=== PATIENT | female | born 1960 | race Caucasian/White ===

== ENCOUNTER 2020-03-06 20:09 | Emergency (ER) | payer SELFPAY ==
[2020-03-06 20:10] VITALS: BP 144/92; PULSE 61; RESP 16; TEMP 36.2; O2SAT 100; BMI 27.3
--- NOTE | 2020-03-06 20:31 | RAD_ITS ---
HISTORY: FALL. LEFT SHOULDER PAIN. Exam: Left Shoulder 3 views COMPARISON: None FINDINGS: # of images incl. paperwork: 2 XR Shoulder Min 2 Views: Acute humeral head comminuted fracture is present with intra-articular extension. There is avulsion of the radial tuberosity. ASCVD within the aortic arch. Pulmonary hypoexpansion. Minimal arthritis within the left acromioclavicular joint. RAD/Shoulder min 2 Views IMPRESSION: Comminuted left humeral head fracture with intra-articular extension. Avulsion of the left greater tuberosity. at 2122 Reported and signed by: Kerwin Kang MD [facility]ER[facility] MD Electronically Signed: Kerwin Kang MD at 21:21 EST Tel , Service support ,
--- NOTE | 2020-03-06 20:32 | ED.DCSUM_ITS ---
History of Present Illness Chief Complaint: Upper Extremity Injury Informant: Patient Onset: Today Current Severity: Severe Maximum Severity: Severe Narrative: Patient presents secondary to left shoulder injury. She is here visiting family from [place]. She states she was going up some steps and tripped striking her left shoulder against the door frame. She states she is unable to move her left arm. She does have some paresthesias in the left arm. She is right-hand dominant. She denies head or neck injury. - Past Medical History (1) Hypertension Status: Chronic Past Medical History - Allergies and Home Meds Allergies/Adverse Reactions: Allergies Penicillins [PCN] Adverse Reaction (Verified 03/06/20 20:12) Hives Primary Care Physician: [facility] Doctor,Out of [NON-STAFF] - Prior records reviewed: Yes Review of Systems General: Denies: Chills, Fever Eyes: Denies: Visual changes - bilaterally ENT: Denies: Bilateral ear pain Cardiovascular: Denies: Chest pain Respiratory: Denies: Dyspnea Gastrointestinal: Denies: Abdominal pain Musculoskeletal: Reports: Extremity Pain Neurological: Reports: Weakness, Parasthesia Hematologic: Denies: Easy bruising, Easy bleeding Allergy: Denies: Uticaria Physical Exam Vital Signs/Narrative: Vital Signs Temp Pulse Resp BP Pulse Ox 03/06/20 20:10 97.1 F L 61 16 144/92 H 100 Inital Vital Signs reviewed: Yes General: Well nourished, Well developed Head: Normocephalic ENT: Moist mucous membranes Neck: Supple Cardiovascular: Regular rate, Regular rhythm Respiratory: No distress, CTA bilaterally Abdomen: Soft, Nontender Extremities: - - Tenderness over the anterior left shoulder. No obvious sign of dislocation. Strong hand grasp on the left with good distal pulses and sensation. Decreased range of motion at the shoulder secondary to pain. Neurological: Alert, Oriented x3 Psychological: Normal affect Diagnostic/Tx/Re-eval Impressions Shoulder X-Ray 03/06/20 20:31 IMPRESSION: Comminuted left humeral head fracture with intra-articular extension. Avulsion of the left greater tuberosity. at 2122 Reported and signed by: Kerwin Kang MD [facility] MD Electronically Signed: Kerwin Kang MD at 21:21 EST Tel , Service support , Humerus X-Ray 03/06/20 20:55 IMPRESSION: Left comminuted humeral head fracture with likely avulsion of the greater tuberosity. Extension of the fracture to the articular surface of the humeral head within the glenoid fossa at 2120 Reported and signed by: Kerwin Kang MD Electronically Signed: Kerwin Kang MD at 21:18 EST Tel , Service support , 03/06/20 20:31 Shoulder min 2 Views [RAD] Stat 03/06/20 20:55 Humerus min 2 Views [RAD] Stat - Medical Decision Making Patient was given [place] for pain. X-ray results are reviewed with her. [place]. She will be given a sling and swath as well as pain medication. She will be referred to orthopedics for follow-up here locally as she plans on staying in town for a couple weeks yet. ED Disposition - Plan for ED Patient: Disposition: Home or Assisted Living Diagnosis: Proximal humerus fracture Instructions: ED Fracture Upper Extremity Prescriptions: Hydrocodone Bitart/Apap 5-325 [[place] 5MG-325MG] 1 tablet PO Q6H PRN PRN 3 Days #10 tablet PRN Reason: Pain Referrals: Rubén Wise MD [STAFF PHYSICIAN] - 5-7 Days
[2020-03-06] MEDS: HYDROcodone Bitartrate/Apap 5/325 Tablet PO (20:50)
--- NOTE | 2020-03-06 20:55 | RAD_ITS ---
HISTORY: FALL. LEFT SHOULDER PAIN. Technique: Left arm AP, lateral, radiographs Comparison: None available Findings: Acute left humeral head fracture with displacement of fracture fragments. The greater tuberosity has been displaced. The remainder of the left humerus appears normal. Osseous mineralization, joint spaces, and alignment otherwise appear preserved as imaged. No focal abnormality or radiopaque foreign body is seen in the surrounding soft tissues. RAD/Humerus min 2 Views IMPRESSION: Left comminuted humeral head fracture with likely avulsion of the greater tuberosity. Extension of the fracture to the articular surface of the humeral head within the glenoid fossa at 2120 Reported and signed by: Kerwin Craig MD Electronically Signed: Kerwin Craig MD at 21:18 EST Tel , Service support ,
[2020-03-06 22:24] VITALS: BP 149/75; PULSE 88; RESP 16; O2SAT 96
== END 2020-03-06 22:52 | disposition home or self-care (01) ==
PROVIDERS: Emergency Provider Emergency Medicine
DX: S42.292A Other displaced fracture of upper end of left humerus, initial encounter for closed fracture (principal); W01.198A Fall on same level from slipping, tripping and stumbling with subsequent striking against other object, initial encounter; Y93.89 Activity, other specified; Y92.9 Unspecified place or not applicable; Y99.9 Unspecified external cause status
CPT/HCPCS: 73030; 73060; 99284